=== PATIENT | male | born 1965 | race African-American/Black ===

== ENCOUNTER 2016-11-12 20:48 | Emergency (ER) | payer SELFPAY ==
[2016-11-12 21:17] LABS: Bilirubin Negative (Negative); Blood, Urine Large (Negative); Glucose, Urine (Dipstick) Negative (Negative); Ketone, Urine Negative (Negative); Nitrite Positive (Negative); Protein, Urine (Dipstick) > or equal to 300 mg/dL (Neg-Trace)
[2016-11-12 21:21] LABS: Bacteria/HPF 1+ HPF (None Seen); RBC/HPF 21-50 HPF (0-3); Squamous Epithelial None Seen HPF (0-3)
[2016-11-12] MEDS ORDERED: cefTRIAXone\\ROCEPHIN 500 MG VIAL ONE (21:33)
[2016-11-12] MEDS ORDERED: Lidocaine 1% 20 ML MDV ONE (21:34)
== END 2016-11-12 21:51 | disposition home or self-care (01) ==
LOC: BURERS 20:48
DX: A54.00 Gonococcal infection of lower genitourinary tract, unspecified (principal); R31.9 Hematuria, unspecified; F17.210 Nicotine dependence, cigarettes, uncomplicated
CPT/HCPCS: 81003; 81015; 87077; 87086; 87186; 87491; 87591; 96372; J0696; J2001

== ENCOUNTER 2019-11-20 12:27 | Emergency (ER) | payer SELFPAY ==
[2019-11-20] MEDS ORDERED: Fentanyl 100 MCG/2 ML VIAL ONE (13:02)
[2019-11-20 13:16] LABS: Hemoglobin 11.8 g/dL (14.0-18.0); Mean Corpuscular HGB CONC 31.4 g/dL (32.0-36.0); Mean Corpuscular Hemoglobin 28.6 pg (27.0-31.0); Platelet Count 235 thou/uL (130-400); Red Blood Cell (RBC) Count 4.14 mill/uL (4.70-6.10); White Blood Cell (WBC) Count 12.8 thou/uL (4.8-10.8)
[2019-11-20 13:24] LABS: ALT (SGPT) 37 U/L (8-55); AST (SGOT) 27 U/L (5-34); Albumin 4.3 g/dL (3.5-5.0); Alkaline Phosphatase 78 U/L (40-110); Anion Gap 14 mmol/L (10-20); BUN (Urea Nitrogen) 10 mg/dL (8.4-25.7); Bilirubin, Total 0.5 mg/dL (0.2-1.2); Calc. Creatinine Clearance 0 mL/min (70-130); Calcium 8.9 mg/dL (7.8-10.44); Carbon Dioxide 25 mmol/L (22-29); Chloride 103 mmol/L (98-107); Estimated GFR-MDRD 81; Globulin 3.1 g/dL (2.4-3.5); Glucose 153 mg/dL (70-105); Potassium 4.3 mmol/L (3.5-5.1); Protein, Total 7.4 g/dL (6.0-8.3); Sodium 138 mmol/L (136-145)
[2019-11-20 13:31] LABS: Eosinophils 1 % (0-10); Lymphocytes 14 % (21-51); MDiff Complete? YES; Neutrophil 85 % (42-75); Platelet Morphology Comment Appears Adequate; RBC Morphology Normal
[2019-11-20] MEDS ORDERED: Ketorolac Tromethamine 30 MG/ML VIAL ONE (13:38)
--- NOTE | 2019-11-20 14:12 | ULT ---
EXAM: US Testicular W Doppler PROVIDED CLINICAL HISTORY: Right testicular pain that began one day ago, the pain is getting worse. COMPARISON: None FINDINGS: The right testicle measures 3.2 cm x 2.2 cm x 1.4 cm. There are several punctate echogenic foci seen within the right testicle suggesting testicular microlithiasis. No discrete testicular mass is visualized. Left testicle demonstrates a normal sonographic appearance without evidence of a mass. The left testi jerod measures 3.6 cm x 2 cm x 1.6 cm. There are 2 anechoic cystic structures seen within the right epididymal head largest measuring approx imately 0.7 cm most likely attributable to epididymal cysts. The right epididymis is heterogeneous in appearance and asymmetrically prominent in size compared to the left epididymis. There is also increased vascular flow on color flow evaluation. Findings may be attributable to epididymitis. IMPRESSION: 1. Findings likely reflective of right epididymitis. 2. Right testicular microlithiasis. This is a nonspecific finding. 3. Normal-appearing left testicle with arterial flow documented. Flow is also documented in the right testicle.
[2019-11-20 14:24] LABS: Bacteria/HPF 3+ HPF (None Seen); Bilirubin Negative (Negative); Blood, Urine Trace (Negative); Clarity Cloudy (Clear); Glucose, Urine (Dipstick) Negative (Negative); Leukocyte Small (Negative); Nitrite Positive (Negative); Protein, Urine (Dipstick) Negative (Neg-Trace); RBC/HPF 0-3 HPF (0-3); Squamous Epithelial 0-3 HPF (0-3); Urobilinogen 0.2 mg/dL (Less than 2)
[2019-11-20] MEDS ORDERED: cefTRIAXone\\ROCEPHIN 1 GM VIAL ONE (14:32)
[2019-11-20] MEDS ORDERED: Azithromycin 250 MG TAB ONE ×2 (14:32→14:42)
[2019-11-23 20:06] LABS: Chlam.trachomatis by PCR,Urine Not Detected (NotDetected)
== END 2019-11-20 14:46 | disposition home or self-care (01) ==
LOC: BURERS 12:27
DX: N45.1 Epididymitis (principal); F17.210 Nicotine dependence, cigarettes, uncomplicated
CPT/HCPCS: 36415; 76870; 80053; 81003; 81015; 85025; 87077; 87086; 87186; 87491; 87591; 93976; 96361; 96374; 96375; J0696; J1885; J3010

== ENCOUNTER 2021-03-25 09:26 | Outpatient (CLI) | payer OTHER | END 2021-03-25 09:27 | disposition home or self-care (01) | LOC: BURRAD 09:26 | PROVIDERS: ATTEND Physician Assistant | DX: Z12.2 Encounter for screening for malignant neoplasm of respiratory organs (principal) | CPT/HCPCS: 71046 ==

== ENCOUNTER 2022-03-22 23:42 | Emergency (ER) | payer OTHER, SELFPAY ==
[2022-03-23] MEDS ORDERED: Ketorolac Tromethamine 30 MG/ML VIAL ONE (00:06)
[2022-03-23] MEDS ORDERED: Fentanyl 100 MCG/2 ML VIAL ONE (01:04)
[2022-03-23 01:22] LABS: #Basophils 0.2 thou/uL (0.0-0.2); #Lymphocytes 0.7 thou/uL (1.20-3.40); #Monocytes 0.5 thou/uL (0.11-0.59); #Neutrophils 10.3 thou/uL (1.40-6.50); %Basophils 1.6 % (0.0-1.0); %Monocytes 3.9 % (0.0-10.0); %Neutrophils 88.5 % (42.0-75.0); Hemoglobin 11.9 g/dL (14.0-18.0); Mean Corpuscular HGB CONC 32.1 g/dL (32.0-36.0); Mean Corpuscular Hemoglobin 28.6 pg (27.0-31.0); Mean Corpuscular Volume 89.3 fL (78.0-98.0); Mean Platelet Volume 8.3 fL (7.4-10.4); Platelet Count 216 thou/uL (130-400); Red Blood Cell (RBC) Count 4.15 mill/uL (4.70-6.10); White Blood Cell (WBC) Count 11.7 thou/uL (4.8-10.8)
[2022-03-23 01:37] LABS: ALT (SGPT) 32 U/L (8-55); AST (SGOT) 53 U/L (5-34); Albumin 4.4 g/dL (3.5-5.0); Alkaline Phosphatase 69 U/L (40-110); Anion Gap 16 mmol/L (10-20); BUN (Urea Nitrogen) 19 mg/dL (8.4-25.7); Bilirubin, Total 0.4 mg/dL (0.2-1.2); Calc. Creatinine Clearance 0 mL/min (70-130); Calcium 8.8 mg/dL (7.8-10.44); Carbon Dioxide 26 mmol/L (22-29); Chloride 106 mmol/L (98-107); Glucose 140 mg/dL (70-105); Potassium 4.5 mmol/L (3.5-5.1); Protein, Total 7.4 g/dL (6.0-8.3); Sodium 143 mmol/L (136-145)
== END 2022-03-23 02:10 | disposition short-term general hospital (02) ==
LOC: BURERS 23:42
DX: S22.42XA Multiple fractures of ribs, left side, initial encounter for closed fracture (principal); S40.212A Abrasion of left shoulder, initial encounter; S70.312A Abrasion, left thigh, initial encounter; Z87.891 Personal history of nicotine dependence; V80.010A Animal-rider injured by fall from or being thrown from horse in noncollision accident, initial encounter; Y93.52 Activity, horseback riding
CPT/HCPCS: 71250; 80053; 84484; 85025; 96372; 96374; J1885; J3010

== ENCOUNTER 2022-09-29 10:45 | Emergency (ER) | payer OTHER, SELFPAY | END 2022-09-29 11:44 | disposition home or self-care (01) | LOC: BURERS 10:45 | DX: S16.1XXA Strain of muscle, fascia and tendon at neck level, initial encounter (principal); S90.32XA Contusion of left foot, initial encounter; Z87.891 Personal history of nicotine dependence; V89.2XXA Person injured in unspecified motor-vehicle accident, traffic, initial encounter ==

== ENCOUNTER 2024-09-07 15:31 | Emergency (ER) | payer OTHER, SELFPAY ==
[2024-09-07] MEDS ORDERED: Ketorolac Tromethamine 30 MG (1 mL) VIAL ONE (15:44)
== END 2024-09-07 15:56 | disposition home or self-care (01) ==
LOC: BURERS 15:31
DX: S29.012A Strain of muscle and tendon of back wall of thorax, initial encounter (principal); M62.830 Muscle spasm of back; Z87.891 Personal history of nicotine dependence; V49.69XA Unspecified car occupant injured in collision with other motor vehicles in traffic accident, initial encounter
CPT/HCPCS: 96372; 99283; J1885

== ENCOUNTER 2025-06-12 08:56 | Emergency (ER) | payer OTHER ==
[2025-06-13 09:59] LABS: Chlam.trachomatis by PCR,Urine Not Detected (NotDetected); GC N.gonorrhoeae PCR,UrineVOID Not Detected (NotDetected)
== END 2025-06-12 09:29 | disposition home or self-care (01) ==
LOC: BURERS 08:56
DX: Z20.2 Contact with and (suspected) exposure to infections with a predominantly sexual mode of transmission (principal); F17.220 Nicotine dependence, chewing tobacco, uncomplicated
CPT/HCPCS: 87491; 87591; 99283